=== PATIENT | male | born 1960 | race African-American/Black ===

== ENCOUNTER 2020-09-05 09:45 | Outpatient (CLI) | payer MEDICAID ==
[~2020-09-05] VITALS: Ht 172.7 cm; Wt 93.4 kg
[2020-09-05 10:26] VITALS: BP 150/69
[2020-09-05] MEDS ORDERED: HYDROCHLOROTHIA25 MG ORAL (13:22)
[2020-09-05] MEDS ORDERED: ASPIRIN EC81 MG ORAL (13:22)
[2020-09-05] MEDS ORDERED: LISINOPRIL20 MG ORAL (13:22)
[2020-09-05] MEDS ORDERED: AMLODIPINE BESY10 MG ORAL (13:22)
== END 2020-09-05 13:02 | disposition home or self-care (01) ==
LOC: PAN 09:45
DX: Z00.00 Encounter for general adult medical examination without abnormal findings (principal)
CPT/HCPCS: 99203